=== PATIENT | male | born 1960 | race Caucasian/White ===

== ENCOUNTER 2017-04-03 08:00 | Inpatient (IN) | payer OTHER ==
--- NOTE | 2017-03-27 09:44 | GHP ---
[f rep st] PREOP HISTORY AND PHYSICAL ADMISSION DATE: He will be an a.m. admission for surgery on April 03, 2017. PROBLEM: Left hip arthritis. HISTORY OF PRESENT ILLNESS: The patient is a 56-year-old man admitted for a left total hip arthroplasty. He has severe degenerative arthritis in the left hip. He has had several cortisone injections in the past with only temporary benefit. His symptoms have been quite severe in the past month or so since he sustained a fall. He is now having daily pain. His activities are very limited. PAST MEDICAL HISTORY: He has coronary artery disease. He had 1 stent inserted a number of years ago. He has not had any subsequent problems. He is also treated for gout and receives medication to lower his cholesterol. No history of DVT, hepatitis, sleep apnea or previous MRSA staph infections. CURRENT MEDICATIONS: Allopurinol 300 mg per day. Atorvastatin 40 mg per day. Lipitor 20 mg per day. He has been taking Percocet in the last few weeks to control the hip pain. DRUG ALLERGIES: None. METAL ALLERGY: None. LATEX ALLERGY: None. SOCIAL HISTORY: The patient is . He works in [employer]. He does not smoke cigarettes and rarely drinks alcohol. FAMILY HISTORY: Positive for cancer and diabetes. PHYSICAL EXAMINATION: GENERAL: He is a thin, fit-appearing man. Height 5 feet 9 inches. Weight 175 pounds. BMI 25.8. EYES: Conjunctivae and sclerae are clear. Pupils are round and reactive. MOUTH: Good oral hygiene. No loose teeth. CHEST: Clear. HEART: Regular rhythm. No murmurs. EXTREMITIES : Pertinent findings limited to his left hip. He walks with a limp. Full hip extension and 90 degrees of flexion. As he flexes the hip, he develops a 20- degree external rotation contracture and has 20 additional degrees of external rotation. Abduction 30 degrees. IMAGING: His films show very severe degenerative arthritis of the left hip. He is [id number]. He has moderate degenerative arthritis in his right hip. IMPRESSION ON ADMISSION: 1. Left hip severe degenerative arthritis, which is very symptomatic and limiting. 2. Right hip moderate degenerative arthritis, which is minimally symptomatic. 3. Coronary artery disease, status post stent insertion. 4. Treatment for cholesterol. 5. Treatment for gout. PLAN: He will undergo a left total hip arthroplasty. The surgery has been described to him, including the risks, expectations, complications and recovery time. We have discussed the risks of dislocation, leg length inequality, infection, and sciatic nerve injury. He understands that he is relatively young for a total hip replacement and might need revision surgery in the future. He also understands he is probably going to need a right total hip arthroplasty in the future. I did his right total knee arthroplasty in 2009. /[id number]/MODL MTDD
[~2017-04-03 08:00] MED LIST: ROPIVACAINE 0.2% 80 MG, EPINEPHrine 0.2 MG, KETOROLAC TROMETHAMINE 30 MG in BAG 0 ML IU ONE; TRANEXAMIC ACID 1,600 MG in NS 100 ML IV ONE; ceFAZolin 1 GM/5 ML SYR ONE
[2017-04-03] MEDS ORDERED: ACETAMINOPHEN 325 MG TAB PO ONE (08:10)
[2017-04-03] MEDS ORDERED: ceFAZolin 2 GM/DEXTROSE 100 ML IV ONE (08:10)
[2017-04-03] MEDS ORDERED: DEXAMETHASONE 4 MG/ML VIAL IVP ONE (08:10)
[2017-04-03] MEDS ORDERED: FAMOTIDINE 20 MG TAB PO ONE (08:10)
[2017-04-03] MEDS ORDERED: LIDOCAINE 1% 2 ML INJ ID PRN (08:19)
[2017-04-03] MEDS ORDERED: LR 1,000 ML IV ONE (08:19)
[2017-04-03] MEDS ORDERED: POVIDONE-IODINE 20 ML in SODIUM CL IRRIG SOLUTION 500 ML IRR ONE (09:00)
[2017-04-03] MEDS ORDERED: MIDAZOLAM 2 MG/2 ML VIAL IVP ONE (09:04)
--- NOTE | 2017-04-03 09:04 | PDANEPAE ---
ANE History of Present Illness L BESSIE ANE Past Medical History Past Medical History: DJD L HIP - Cardiovascular History Hx Hypertension: No Hx Arrhythmias: No Hx Chest Pain: No Hx Coronary Artery / Peripheral Vascular Disease: Yes Hx CHF / Valvular Disease: No Hx Palpitations: No Cardiovascular History Comment: STENT 2005, stable since on statins, 0 anticoagulation. 5+ METS - Pulmonary History Hx COPD: No Hx Asthma/Reactive Airway Disease: No Hx Recent Upper Respiratory Infection: No Hx Oxygen in Use at Home: No Hx Sleep Apnea: No Sleep Apnea Screening Result - Last Documented: Negative - Neurologic History Hx Cerebrovascular Accident: No Hx Seizures: No Hx Dementia: No - Endocrine History Hx Diabetes: No Endocrine History Comment: GOUT - Renal History Hx Renal Disorders: No - Liver History Hx Hepatic Disorders: No - Neurological & Psychiatric Hx Hx Neurological and Psychiatric Disorders: No - Cancer History Hx Cancer: No - Congenital Disorder History Hx Congenital Disorders: No - GI History Hx Gastrointestinal Disorders: No - Other Health History Other Health History: GOUT. OSTEOARTHRITIS - Chronic Pain History Chronic Pain: Yes (LT HIP) - Surgical History Prior Surgeries: RT TOTAL KNEE 2009. FREYA KNEE SCOPES ANE Review of Systems - Exercise capacity METS (RN): 5 METS ANE Patient History - Allergies Allergies/Adverse Reactions: No Allergies [NKDA] Allergy (Verified 10/20/09 09:09) - Home Medications Home Medications: ASPIRIN DAILY 03/01/17 [Last Taken 03/27/17] Allopurinol DAILY AT 6PM 03/01/17 [Last Taken 03/27/17] Atorvastatin Calcium DAILY AT 6PM 03/01/17 [Last Taken 03/27/17] Percocet 10-325 mg Tablet TID 03/01/17 [Last Taken 03/27/17] - NPO status NPO Status: no food or drink >8 hours - Anes Hx Anes Hx: no prior problems - Smoking Hx Smoking Status: Never smoked Marijuana use: No - Alcohol Use Alcohol Use: Rarely ANE Labs/Vital Signs - Labs - CBC WBC: reviewed and ok - Vital Signs Height: 175.26 cm Weight: 77.111 kg ANE Physical Exam - Airway Mallampati Score: Class 1 Mouth exam: normal dental/mouth exam - Pulmonary Pulmonary: no respiratory distress - Cardiovascular Cardiovascular: regular rate and rhythym - ASA Status ASA Status: II ANE Anesthesia Plan Anesthesia Plan: spinal (spinal with Propofol sedation, no duramorph)
--- NOTE | 2017-04-03 09:10 | PDHPUP ---
History & Physical Update H&P update statement: This history and physical update is based on an assessment of the patient which was completed after admission or registration (within 24 hours), but prior to the surgery/procedure. H&P update: H&P reviewed & patient examined, no change in patient's condition since H&P completed
[2017-04-03] MEDS ORDERED: BUPIVACAINE 0.5% 30 ML SDV ONE (09:43)
[2017-04-03] MEDS ORDERED: fentaNYL 100 MCG/2 ML INJ ONE (09:44)
[2017-04-03] MEDS ORDERED: PROPOFOL/EMULSION 500 MG/50 ML BOTTLE IV ONE ×2 (09:44→10:27)
[2017-04-03] MEDS ORDERED: ONDANSETRON 4 MG/2 ML VIAL ONE (10:05)
[2017-04-03] MEDS ORDERED: DEXAMETHASONE 4 MG/ML VIAL ONE (10:05)
[2017-04-03] MEDS ORDERED: epHEDrine SULFATE 10 MG/ML SYR ONE (10:13)
--- NOTE | 2017-04-03 11:18 | POSTOPPROG ---
Post Op Note Date of Operation: 04/03/17 Surgeon: Vince Deleon Stretcher And Drier: Kade/ Franky Whitlock Anesthesiologist: Leif Arellano Anesthesia: IV Sedation, Spinal Post-op Diagnosis: left hip arthritis Procedure: left total hip arthroplasty Inf/Abcess present in the surg proc area at time of surgery?: No EBL: 100-500
[2017-04-03] MEDS ORDERED: DEXAMETHASONE 4 MG/ML VIAL IVP PRN (11:29)
[2017-04-03] MEDS ORDERED: LABETALOL HCL 50 MG/10 ML SYR IVP PRN (11:29)
[2017-04-03] MEDS ORDERED: METOCLOPRAMIDE 10 MG/2 ML VIAL IVP PRN ×2 (11:29→11:44)
[2017-04-03] MEDS ORDERED: ONDANSETRON 4 MG/2 ML VIAL IVP PRN ×2 (11:29→11:44)
[2017-04-03] MEDS ORDERED: LR 500 ML IV PRN (11:29)
[2017-04-03] MEDS ORDERED: HYDROCODONE/APAP 5/325 TAB PO PRN (11:29)
[2017-04-03] MEDS ORDERED: PROMETHAZINE HCL 25 MG/ML INJ IVP PRN ×2 (11:29→11:44)
[2017-04-03] MEDS ORDERED: MEPERIDINE 25 MG/ML SYR IVP PRN (11:29)
[2017-04-03] MEDS ORDERED: OXYCODONE/APAP 5/325 TAB PO PRN (11:29)
[2017-04-03] MEDS ORDERED: fentaNYL 100 MCG/2 ML INJ IVP PRN ×2 (11:29)
[2017-04-03] MEDS ORDERED: NALOXONE HCL 0.4 MG/ML INJ IVP PRN (11:29)
[2017-04-03] MEDS ORDERED: ACETAMINOPHEN 500 MG TAB PO PRN (11:29)
[2017-04-03] MEDS ORDERED: ALBUTEROL 3 ML DEYVIAL IH PRN (11:29)
--- NOTE | 2017-04-03 11:32 | POSTANESTH ---
Post Anesthetic Evaluation Cardiovascular Status: Normal, Stable Respiratory Status: Normal, Stable Level of Consciousness/Mental Status: Can Participate in Eval Pain Control: Adequate, Prn Tx Ordered Nausea/Vomiting Control: Adequate, Prn Tx Ordered Complications Possibly Related to Anesthesia: None Noted (no apparent anesthetic complications)
[2017-04-03] MEDS ORDERED: TEMAZEPAM 15 MG CAP PO PRN (11:44)
[2017-04-03] MEDS ORDERED: POLYETHYLENE GLYCOL 3350 17 GM PKT PO PRN (11:44)
[2017-04-03] MEDS ORDERED: traMADol 50 MG TAB PO PRN (11:44)
[2017-04-03] MEDS ORDERED: NS 500 ML IV PRN (11:44)
[2017-04-03] MEDS ORDERED: diphenhydrAMINE 25 MG CAP PO PRN (11:44)
[2017-04-03] MEDS ORDERED: DIPHENOXYLATE/ATROPINE LOMOTIL 1 TAB PO PRN (11:44)
[2017-04-03] MEDS ORDERED: BISACODYL 10 MG SUPP PR PRN (11:44)
[2017-04-03] MEDS ORDERED: PROMETHAZINE HCL 25 MG SUPPR PR PRN (11:44)
[2017-04-03] MEDS ORDERED: ONDANSETRON DISINTEGRATING 4 MG TAB PO PRN (11:44)
[2017-04-03] MEDS ORDERED: MAGNESIUM HYDROXIDE 30 ML UDCUP PO PRN (11:44)
[2017-04-03] MEDS ORDERED: CYCLOBENZAPRINE 10 MG TAB PO PRN (11:44)
[2017-04-03] MEDS ORDERED: PHARMACY PAIN CONSULT 1 EA MISC PRN (11:44)
[2017-04-03] MEDS ORDERED: LACTULOSE 20 GM/30 ML UDCUP PO PRN (11:44)
[2017-04-03] MEDS ORDERED: LR 1,000 ML IV SCH (12:00)
[2017-04-03] MEDS: ACETAMINOPHEN 325 MG TAB PO SCH ×3 (13:14→23:41)
[2017-04-03] MEDS: oxyCODONE IR 5 MG TAB PO PRN ×2 (16:45→20:18)
[2017-04-03] MEDS: ceFAZolin 2 GM/DEXTROSE 100 ML IV SCH (18:20)
[2017-04-03] MEDS: KETOROLAC 30 MG/1 ML SDV IVP PRN (20:18)
[2017-04-03] MEDS: ASPIRIN 325 MG TAB PO SCH (20:19)
[2017-04-03] MEDS: TRANEXAMIC ACID 650 MG TAB PO SCH (20:19)
[2017-04-03] MEDS: FAMOTIDINE 20 MG TAB PO SCH (20:20)
[2017-04-03] MEDS: SENNOSIDES/DOCUSATE SODIUM TAB PO SCH (20:29)
--- NOTE | 2017-04-03 21:44 | GOP ---
[f rep st] OPERATIVE REPORT DATE OF OPERATION: 04/03/2017 SURGEON: Vince Deleon MD ELECTRICIAN CONTROL EQUIPMENT: James Braun [facility] Joby Whitlock, PAC ANESTHESIA: Marcaine spinal and IV sedation. ANESTHESIOLOGIST: Leif Arellano MD PREOPERATIVE DIAGNOSIS: Left hip advanced degenerative arthritis. POSTOPERATIVE DIAGNOSIS: Left hip advanced degenerative arthritis. PROCEDURE PERFORMED: On 04/03/2017, a left total hip arthroplasty, Oxinium femoral head on Highly C rosslinked polyethylene cup liner. FINDINGS: DESCRIPTION OF PROCEDURE: The patient was given 2 g of IV Ancef preoperatively within 60 minutes of surgery. He also received IV tranexamic acid at a dose of 20 mg/kg. He was placed on the operatin g room table and given spinal anesthesia with Marcaine by Dr. Arellano. He was then placed supine and given IV sedation. A High catheter was not used. He wore a KEISHA stocking and SCD on the nonoperati ve leg. He was rolled to the right lateral decubitus position. The position was secured with the p egboard table attachment. An axillary roll was used and all pressure points were carefully padded. I was careful to lock his pelvis in a vertical position. His perineum was isolated with plastic ad hesive drapes. The left hip and left lower extremity were prepped with ChloraPrep. They were drape d free using sterile sheets, stockinette, and Ioban plastic drape. The [employer] time-out was performed to verify the correct surgical side and site an d the correct patient identity. The [place] time-out was also performed. I made a 4-5 inch straight oblique posterolateral hip skin incision. Subcutaneous tissues were karina ply divided and hemostasis was obtained using electrocautery. He was thin and had a thin layer of s ubcutaneous fat. The fascia susie was identified and split along the axis of its fibers. I then cur cristobal posteriorly and proximally and split the fascia of the gluteus jesus manuel and bluntly split the mus johnny fibers in line with their orientation. The Charnley self-retaining retractor was inserted. His sciatic nerve was located, partially exposed, and protected throughout the procedure. The external rotators and the posterior hip capsule were divided as separate layers at the base of the femoral n nahun, tagged, and reflected posteriorly. A smooth 8-inch Steinmann pin was inserted vertically in th e ilium superior to the acetabulum. An 8th-inch drill bit was inserted vertically into the greater trochanter and parallel to the first pin. The distance between the 2 was measured for leg length re ference. His femoral head was dislocated posteriorly. Severe degenerative changes were present. T he femoral neck was osteotomized at the appropriate level and inclination. I was careful to preserve all the posterior capsule and most of the anterior capsule. The remnant o f his damaged labrum was excised. I prepared the femur first. This allowed me to [employer] the amount of natural femoral neck anteversion . This, in turn, allowed me to later determine the correct amount of cup anteversion. He had appro ximately 5-10 degrees of natural femoral neck anteversion. The canal was opened laterally with a anneliese x chisel. I reamed and broached sequentially up to a size 13. I used a size 13 broach as a trial s tem. I was careful to lateralize adequately. Appropriate retractors were inserted to expose the acetabulum. The acetabulum was reamed sequential ly up to 53 mm. I selected a 54 mm Metzger and Nephew R3 solid-backed hemispherical shell. This was tapped securely into place in the proper degree of inclination and anteversion. I used the transver se acetabular ligament and other acetabular bony landmarks to help me properly orient the cup. Cup fixation was very tight and I did not think supplemental screws were necessary. I inserted a screw- in metal dome hole plug. I performed a series of trial reductions to determine length and stability. I concluded that the si ze 13 stem with a +4 mm neck length, a 36 mm head, and a 20-degree lip trial liner gave me the prope r combination of appropriate length and good anterior and posterior stability. The 20-degree lipped Metzger and Nephew R3 Highly Crosslink polyethylene liner was inserted and tapped securely into place. I selected a Metzger and Nephew Synergy stem in size 13 with standard offset. This was inserted press-fit and was very tight. I did 1 final trial reduction to confirm that the + 4 mm neck length with a 36 mm head was the proper combination. I selected a Metzger and Nephew Oxiniu m head with an outside diameter of 36 mm and a neck length of +4 mm. The head was tapped securely o nto the clean trunnion. The acetabulum was irrigated, cleaned, and then the hip was reduced 1 final time. Forty mL of the joint anesthetic cocktail were injected into the capsule, the deep musculature, and subcutaneous tissues along the skin edges. The joint was thoroughly irrigated 1 final time with a d ilute Betadine solution. His sciatic nerve was reinspected and looked unharmed. The external rotat ors and the posterior hip capsule were repaired in separate layers with #2 FiberWire sutures through drill holes in the greater trochanter. This provided a strong posterior capsular and external rota tor repair. The fascia susie was closed first with several interrupted [id number] #2 FiberWire sutures followed by a running #2 barbed Ethicon Stratafix PDO suture. Subcutaneous tissues were roger sed with a running 0 barbed Ethicon Stratafix Monoderm suture. The skin was closed with a running 3 -0 barbed Ethicon Stratafix Monoderm subcuticular suture. The skin edges were reapproximated and se aled with Dermabond glue. The wound was covered with a strip of Telfa and everything was held in pl deny with a piece of clear plastic Tegaderm. A long-leg KEISHA stocking and SCD were applied to his left lower extremity. He wore a stocking and SC D on the opposite leg during the procedure. An abduction pillow was placed between his knees. He w as awakened from anesthesia and rolled to the supine position on his [facility]. He was taken to PACU in satisfactory condition. There were no recognized intraoperative complications. The lam mated blood loss was about 400 mL. The sponge and needle count were correct on 2 occasions. I used a Metzger and Nephew R3 hemispherical solid-backed acetabular shell with an outside diameter of 54 mm. The liner was a Metzger and Nephew R3 20-degree lipped Highly Crosslinked liner with an insid e diameter of 36 mm. The femoral component was a standard offset Metzger and Nephew Synergy stem in s ize 13 with press-fit. The femoral head was Metzger and Nephew Oxinium head with a +4 mm neck length and a 36 mm outside diameter. James Braun and Franky Whitlock acted as surgical assistants. Their assistance was a ludivina vázquez. /[id number]/MODL
[2017-04-04] MEDS: oxyCODONE IR 5 MG TAB PO PRN (00:20)
[2017-04-04 01:43] VITALS: RESP 16
[2017-04-04] MEDS: ceFAZolin 2 GM/DEXTROSE 100 ML IV SCH (01:53)
[2017-04-04] MEDS: KETOROLAC 30 MG/1 ML SDV IVP PRN ×2 (01:53→08:46)
[2017-04-04] MEDS ORDERED: SUMAtriptan 25 MG TAB PO PRN (02:25)
[2017-04-04] MEDS: TRANEXAMIC ACID 650 MG TAB PO SCH ×3 (03:58→13:50)
[2017-04-04] MEDS: ACETAMINOPHEN 325 MG TAB PO SCH ×2 (05:06→12:14)
[2017-04-04 05:26] LABS: HEMATOCRIT 36.6 % (40.0-51.0); HEMOGLOBIN 12.3 g/dL (13.7-17.5)
--- NOTE | 2017-04-04 07:58 | SOAPPROG ---
SOAP Progress Note Assessment/Plan: Assessment: Afebrile. Awake and alert. He is complaining of the severe migraine headaches. Whenever he gets up he develops nausea and vomiting. He has a history of previous migraine headaches. He has already been given Imitrex and Toradol without relief. His dressing is dry. Sciatic nerve intact. Films look good. H&H is good. Plan: Treat his migraine headaches with Imitrex, Tylenol No. 3 and IV fluids. Continue physical therapy. Discharged later today if the migraine headaches symptoms can be controlled. 04/04/17 07:56 Objective: Vital Signs Temp Pulse Resp BP Pulse Ox 37.1 C 57 L 16 120/88 H 91 L 04/04/17 07:31 04/04/17 07:31 04/04/17 07:31 04/04/17 07:31 04/04/17 07:31 Laboratory Results 04/04/17 04:59 04/03/17 04/04/17 04/05/17 05:59 05:59 05:59 Intake Total 5080 Output Total 4050 Balance 1030 ICD10 Worksheet Patient Problems: Problems Problem Status Onset Osteoarthritis of left hip Acute
[2017-04-04] MEDS ORDERED: SUMAtriptan 25 MG TAB PO ONE (08:00)
[2017-04-04] MEDS ORDERED: ACETAMINOPHEN/CODEINE 300/30MG TAB PO PRN (08:00)
[2017-04-04] MEDS ORDERED: FERROUS SULFATE 140 MG TAB.ER PO SCH (09:00)
[2017-04-04 11:33] VITALS: BP 128/75; PULSE 62; TEMP 98.5; O2SAT 95
[2017-04-04] MEDS: FAMOTIDINE 20 MG TAB PO SCH (12:15)
[2017-04-04] MEDS: ASPIRIN 325 MG TAB PO SCH (12:15)
[2017-04-04] MEDS: SENNOSIDES/DOCUSATE SODIUM TAB PO SCH (12:15)
--- NOTE | 2017-04-04 16:22 | GDS ---
[f rep st] DISCHARGE SUMMARY ADMITTING DIAGNOSES: Left hip severe degenerative arthritis. DISCHARGE DIAGNOSIS: Left hip severe degenerative arthritis. OPERATION PERFORMED: On 04/03/2017, left total hip arthroplasty. POSTOPERATIVE COMPLICATIONS: None. CONDITION ON DISCHARGE: Improved. DESCRIPTION OF HOSPITAL COURSE: The patient was admitted to the hospital on the morning of surgery. His admission CBC was normal. The same day, under a combination of Marcaine, spinal anesthesia an d IV sedation, he underwent a left total hip arthroplasty. Postoperatively, he was treated with mul timodal DVT prophylaxis, including aspirin. On the first postoperative day, his hemoglobin and hematocrit were 12.3 and 36.6. He developed a po stoperative migraine headache, which caused quite a bit of nausea and vomiting. The migraine headac he was treated with Imitrex, Tylenol with codeine, and increased IV fluids. He was seen by Physical Therapy and made satisfactory progress with ambulation and stairs. DISPOSITION: The patient is discharged to his home. DISCHARGE INSTRUCTIONS: He will go to outpatient physical therapy. Use an abduction pillow in bed for 3 weeks. Use KEISHA stockings for 1 week. Continue aspirin 325 mg p.o. daily for 21 days. I will see him back in the office on 04/22/2017. If there any problems, he is to call me at the office. /[id number]/MODL
== END 2017-04-04 12:30 | disposition home or self-care (01) | DRG 470 ==
LOC: EEVIPCON 08:00 → F3N 08:00 → EEVIPCON 10:00 → F3N 12:31
PROVIDERS: ADMIT Orthopaedic Surgery; ATTEND Orthopaedic Surgery
PROC: 0SRB04Z Replacement of Left Hip Joint with Ceramic on Polyethylene Synthetic Substitute, Open Approach (ICD-10-PCS; principal; 2017-04-03 09:45)
DX: M16.0 Bilateral primary osteoarthritis of hip (principal); G43.909 Migraine, unspecified, not intractable, without status migrainosus; I25.10 Atherosclerotic heart disease of native coronary artery without angina pectoris; Z95.5 Presence of coronary angioplasty implant and graft; M10.9 Gout, unspecified; E78.00 Pure hypercholesterolemia, unspecified
CPT/HCPCS: 97116-GP; 97161-GP; 97165-GO; J0171; J0690; J1100; J1885; J2250; J2405; J2550; J2704; J2765; J2795; J3010

== ENCOUNTER 2017-06-06 14:08 | Inpatient (IN) | payer OTHER ==
--- NOTE | 2017-06-06 14:11 | EDPHY ---
HPI/HX/ROS/PE/MDM Narrative: CHIEF COMPLAINT: Post-resuscitation HPI: This patient is a 56 year old male arriving via EMS following successful resuscitation at the [employer] [place] shortly prior to arrival. Per EMS report , he was swimming laps, and the pot feeder noted he was not making forward progress and seemed to be flailing. The patient looked up but seemed to be disoriented, and lost consciousness as he swam towards the side. The pot feeder pulled him out immediately, and he did not go underwater. The pot feeder noted agonal breathing, lost pulses, and placed on AED, which recommended shock. He performed 2 minutes of CPR. A second shock was advised. In the middle of second round of CPR, the patient opened his eyes and started talking. He has no memory of event. EKG in transit showed sinus rhythm. The patient currently feels alright. He felt lightheaded in the pool, and then remembers waking with a large group of people around him. He endorses chest pain on deep inspiration, localized to the left of his sternum. He states he regularly swims for exercise and usually does not eat prior to his swims, but did today. He denies recent cold or flu symptoms. REVIEW OF SYSTEMS: Aside from elements discussed in the HPI, a comprehensive 10-point review of systems was reviewed and is negative. PMH: History of mild [place], stent placement. Heart scan in 2011 negative for calcium buildup. Knee and hip replacement. 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 . Lives in [place]. PHYSICAL EXAM: General:Patient is alert, in no acute distress. ENT:Eyes are normal to inspection. ENT inspection normal. Neck: Normal inspection. Full range of motion. Respiratory:No respiratory distress. Breath sounds normal bilaterally. Cardiovascular: Regular rate and rhythm. Strong peripheral pulses. Normal cap refill. Abdomen:The abdomen is nontender to palpation. There are no peritoneal signs. There are normal bowel sounds. Back: Normal to inspection. No tenderness to palpation. Skin: Normal color. No rash. Warm and dry. Extremities: Normal appearance. Full range of motion. Neuro: Oriented x3. Normal motor function. Normal sensory function. ED Course: 14:09 Met EMS on arrival. Plan to call cardiology. 14:[address] Castellanos, gear shaper. 14:[address] Martinez, gear shaper. He will assess the patient. 14:[address] Alicia. The patient now states he experienced chest tightness this morning. Plan to admit him to the labor delivery rn for continued evaluation. I spent a total of 30 minutes of critical care time in obtaining history, performing a physical exam, bedside monitoring of interventions, collecting and interpreting tests and discussion with consultants but not including time spent performing procedures. - Data Points Imaging Results: Imaging Impressions Chest X-Ray 06/06/17 14:22 Impression: Clear lungs. Negative portable chest. Laboratory Results: Laboratory Results 06/06/17 14:12 06/06/17 14:12 06/06/17 06/06/17 06/06/17 14:12 14:12 14:07 WBC 8.05 10^3/uL 10^3/uL (3.80-9.50) RBC 4.38 10^6/uL L 10^6/uL (4.40-6.38) Hgb 13.7 g/dL g/dL (13.7-17.5) POC Hgb 15.0 gm/dL gm/dL (13.7-17.5) Hct 41.0 % % (40.0-51.0) POC Hct 44 % % (40-51) MCV 93.6 fL fL (81.5-99.8) MCH 31.3 pg pg (27.9-34.1) MCHC 33.4 g/dL g/dL (32.4-36.7) RDW 14.2 % % (11.5-15.2) Plt Count 195 10^3/uL 10^3/uL (150-400) MPV 11.6 fL fL (8.7-11.7) Neut % (Auto) 43.3 % % (39.3-74.2) Lymph % (Auto) 43.2 % % (15.0-45.0) Avery % (Auto) 6.7 % % (4.5-13.0) Eos % (Auto) 6.1 % % (0.6-7.6) Baso % (Auto) 0.5 % % (0.3-1.7) Nucleat RBC Rel Count 0.0 % % (0.0-0.2) Absolute Neuts (auto) 3.48 10^3/uL 10^3/uL (1.70-6.50) Absolute Lymphs (auto) 3.48 10^3/uL H 10^3/uL (1.00-3.00) Absolute Monos (auto) 0.54 10^3/uL 10^3/uL (0.30-0.80) Absolute Eos (auto) 0.49 10^3/uL H 10^3/uL (0.03-0.40) Absolute Basos (auto) 0.04 10^3/uL 10^3/uL (0.02-0.10) Absolute Nucleated RBC 0.00 10^3/uL 10^3/uL (0-0.01) Immature Gran % 0.2 % % (0.0-1.1) Immature Gran # 0.02 10^3/uL 10^3/uL (0.00-0.10) POC Sodium 143 mEq/L mEq/L (134-144) Sodium 142 mEq/L mEq/L (134-144) POC Potassium 3.2 mEq/L L mEq/L (3.3-5.0) Potassium 3.6 mEq/L mEq/L (3.5-5.2) POC Chloride 103 mEq/L mEq/L (97-110) Chloride 103 mEq/L mEq/L (97-110) Carbon Dioxide 21 mEq/l L mEq/l (22-31) Anion Gap 18 mEq/L H mEq/L (8-16) POC BUN 15 mg/dL mg/dL (7-23) BUN 15 mg/dL mg/dL (7-23) Creatinine 1.1 mg/dL mg/dL (0.7-1.3) POC Creatinine 1.1 mg/dL mg/dL (0.7-1.3) Estimated GFR > 60 Glucose 148 mg/dL H mg/dL (70-100) POC Glucose 158 mg/dL H mg/dL (70-100) Calcium 9.2 mg/dL mg/dL (8.5-10.4) Troponin I 0.035 ng/mL H ng/mL (0.000-0.034) Point of Care Test Results: 06/06/17 14:07 POC Sodium 143 POC Potassium 3.2 L POC Chloride 103 POC BUN 15 POC Creatinine 1.1 POC Glucose 158 H General Initial Vital Signs: Initial Vital Signs Temperature (C) 36.9 C 06/06/17 14:17 Heart Rate 67 06/06/17 14:17 Respiratory Rate 15 06/06/17 14:17 Blood Pressure 136/82 H 06/06/17 14:17 O2 Sat (%) 94 06/06/17 14:17 O2 Delivery Mode Nasal Cannula O2 (L/minute) 2 Allergies/Adverse Reactions: No Allergies [NKDA] Allergy (Verified 06/06/17 14:14) Home Medications: Medication Instructions Recorded Allopurinol [Allopurinol 300 MG 300 mg PO DAILY 03/01/17 (RX)] Atorvastatin Calcium [Lipitor 20 20 mg PO DAILY 03/01/17 mg (*)] [place]-3 Fatty Acids [Fish Oil 1000 1,000 mg PO DAILY 04/03/17 mg (*)] Acetaminophen [Tylenol 325mg (*)] 650 mg PO Q6HRS #0 tab 04/04/17 Aspirin [Aspirin 325 mg (*)] 325 mg PO DAILY #21 tab 04/04/17 Ferrous Sulfate [Slow Fe 140 MG 140 mg PO DAILY #30 tab.er 04/04/17 (*)] Ondansetron Odt [Zofran Odt 4 mg 4 mg PO Q4HRS PRN #0 tab 04/04/17 (*)] Hydrocodone Bit/Acetaminophen 06/06/17 Departure - Departure Disposition: [facility] Acute Clinical Impression: Cardiac arrest Condition: Fair Referrals: Patient,NotPresent [Primary Care Provider] - As per Instructions Report Scribed for: Bryan Marie Report Scribed by: Darleen Ortiz Date of Report: 06/06/17 Time of Report: 14:08 Physician Review and Approval Statement: Portions of this note were transcribed by an ED scribe. I personally performed the history, physical exam, and medical decision making; and confirm the accuracy of the information in the transcribed note.
--- NOTE | 2017-06-06 14:24 | CPEKG ---
Heart Rate: 66 RR Interval: 909 P-R Interval: 204 QRSD Interval: 96 QT Interval: 440 QTC Interval: 461 P Saxe: 57 QRS Saxe: -8 T Wave Saxe: 45 EKG Severity - NORMAL ECG - EKG Impression: SINUS RHYTHM Electronically Signed By: Ricky Blackmon 07-Jun-2017 11:47:36
[2017-06-06 14:26] LABS: % IMMATURE GRANULYOCYTES 0.2 % (0.0-1.1); ABSOLUTE IMMATURE GRANULOCYTES 0.02 10^3/uL (0.00-0.10); ADD DIFF? NO; ADD MORPH? NO; ADD SCAN? NO; ATYPICAL LYMPHOCYTE FLAG 0 (0-99); FRAGMENT RBC FLAG 0 (0-99); HEMOGLOBIN 13.7 g/dL (13.7-17.5); LEFT SHIFT FLG 0 (0-99); LIPEMIA HEMOLYSIS FLAG 80 (0-99); MEAN CELL HEMOGLOBIN 31.3 pg (27.9-34.1); MEAN CELL HEMOGLOBIN CONCENTR. 33.4 g/dL (32.4-36.7); MEAN CELL VOLUME 93.6 fL (81.5-99.8); MEAN PLATELET VOLUME 11.6 fL (8.7-11.7); PLATELET CLUMPS FLAG 0 (0-99); PLATELET COUNT 195 10^3/uL (150-400); RED BLOOD CELL COUNT 4.38 10^6/uL (4.40-6.38); RED CELL DISTRIBUTION WIDTH 14.2 % (11.5-15.2)
[2017-06-06 14:41] LABS: ANION GAP 18 mEq/L (8-16); CALCIUM 9.2 mg/dL (8.5-10.4); CARBON DIOXIDE 21 mEq/l (22-31); CHLORIDE 103 mEq/L (97-110); CREATININE 1.1 mg/dL (0.7-1.3); GLOMERULAR FILTRATION RATE > 60; GLUCOSE 148 mg/dL (70-100); POTASSIUM 3.6 mEq/L (3.5-5.2); SODIUM 142 mEq/L (134-144)
[2017-06-06 14:51] LABS: TROPONIN I 0.035 ng/mL (0.000-0.034)
[2017-06-06] MEDS ORDERED: LIDOCAINE 1% 300 MG/30 ML SDV ONE (14:59)
[2017-06-06] MEDS ORDERED: fentaNYL 100 MCG/2 ML INJ ONE ×2 (14:59→15:33)
[2017-06-06] MEDS ORDERED: MIDAZOLAM 2 MG/2 ML VIAL ONE ×3 (14:59→15:53)
[2017-06-06] MEDS ORDERED: IOPAMIDOL (ISOVUE-370) 150 ML BTL IV ONE ×3 (15:00→16:11)
[2017-06-06] MEDS ORDERED: ASPIRIN 81 MG CHEWABLE TAB ONE (15:12)
--- NOTE | 2017-06-06 15:28 | PDPROPOC ---
Sedation Plan of Care Sedation Plan of Care: vital signs stable, mental status noted, patient educated of risks, benefits, alternatives, patient can tolerate sedation ASA Classification: ASA 2 Planned drugs: fentanyl, midazolam Mallampati Score: Class 2 Mallampati Reference Image: Patient passed 3-3-2 rule?: Yes
[2017-06-06] MEDS ORDERED: BIVALIRUDIN 250 MG/5 ML VIAL IV ONE (15:46)
[2017-06-06] MEDS ORDERED: NITROGLYCERIN 1,500 MCG/15 ML VIAL MISC ONE (16:10)
[2017-06-06] MEDS ORDERED: TICAGRELOR 90 MG TAB ONE (16:25)
[2017-06-06] MEDS ORDERED: ONDANSETRON 4 MG/2 ML VIAL IVP PRN (16:54)
[2017-06-06] MEDS ORDERED: ATROPINE SULFATE 1 MG/10 ML SYR IVP PRN (16:54)
[2017-06-06] MEDS ORDERED: LORazepam 2 MG/ML INJ IVP PRN (16:54)
[2017-06-06] MEDS ORDERED: NITROGLYCERIN 0.4 MG BTL SL PRN (16:54)
[2017-06-06] MEDS ORDERED: TEMAZEPAM 15 MG CAP PO PRN (16:54)
--- NOTE | 2017-06-06 17:09 | CPEKG ---
Heart Rate: 61 RR Interval: 984 P-R Interval: 204 QRSD Interval: 94 QT Interval: 452 QTC Interval: 456 P Ark[place]: 66 QRS [place]: -15 T Wave [place]: 32 EKG Severity - OTHERWISE NORMAL ECG - EKG Impression: SINUS RHYTHM EKG Impression: BORDERLINE LEFT AXIS DEVIATION Electronically Signed By: Ricky Blackmon 07-Jun-2017 06:05:32
--- NOTE | 2017-06-06 17:23 | GCON ---
[f rep st] CONSULTATION REASON FOR CONSULTATION: We have been asked by Dr. Marie to evaluate the patient with a cardiac a rrest. HISTORY OF PRESENT ILLNESS: The patient is a 56-year-old gentleman with known coronary artery diseas e, who presented to the Emergency Department on 06/06/2017 with a witnessed cardiac arrest. The demetrice ent was in his usual state of health until the a.m. of admission, when he began to experience some ch est discomfort. The patient described the chest discomfort as a tightness going across the top of hi s chest. It did not radiate into his arms and was not associated with nausea, vomiting, or diaphores is. The patient thought he may have had a cold and continued on with his daily activities. The demetrice ent continued to note the chest discomfort intermittently throughout the day. In the afternoon he we nt for his routine swim and completed 90% of his workout, when he was noted to be not making forward progress and was flailing, according to a salesforce business analyst. The patient began to swim to the side of the po ol where he lost consciousness. The lifestyle block farmer immediately pulled him out of the pool and initiated CPR. An AED was placed, and the patient was ultimately shocked on 2 separate occasions with return o f a perfusing rhythm. At this time, the patient is having some discomfort across the top of his ches t, but is otherwise feeling well. The patient has a previous history of coronary artery disease. In 2005 he had an acute coronary syndrome, and was treated with percutaneous coronary intervention of h is left anterior descending coronary artery. Symptoms at that time were predominantly nauseousness a nd diaphoresis. He did not report symptoms of chest pain. PAST MEDICAL HISTORY: 1. Coronary artery disease. 2. Hyperlipidemia. MEDICATIONS: Please see medicine reconciliation form. 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 He does not smoke. FAMILY HISTORY: Negative for cardiac arrest or early onset of coronary artery disease. REVIEW OF SYSTEMS: A 10-point review of systems is negative, except as noted in HPI. PHYSICAL EXAMINATION: GENERAL: The patient is sitting in bed. He appears to be in no acute distres s. VITAL SIGNS: Temperature is afebrile, pulse is 67, blood pressure 132/76, respiratory rate 18, S aO2 97% on 2 L nasal cannula. HEENT: Normocephalic atraumatic. Extraocular muscles intact. NECK: No JVD. No bruits. LUNGS: Clear to auscultation bilaterally. CARDIOVASCULAR: Regular rate and r hythm S1, S2. No murmurs, rubs, or gallops appreciated. ABDOMEN: Soft, nontender. Normoactive bow el sounds. EXTREMITIES: No clubbing, cyanosis, or edema. SKIN: Evidence of previous scars, but no rashes noted. NEURO: The patient is awake, alert, and oriented x3. LABORATORY: White blood cell count is 8.05, hemoglobin 13.7, hematocrit 41.0, platelet count 195, so dium 142, potassium 3.6, chloride 103, CO2 21, BUN 15, creatinine 1.1, troponin 0.035. EKG demonstrates sinus rhythm, no acute ST or T-wave changes. ASSESSMENT AND PLAN: The patient is a 56-year-old gentleman with known coronary artery disease, who presents with a cardiac arrest in the setting of probable crescendo angina. Reviewed risks and benef its of cardiac catheterization for risk stratification. We will arrange to have this performed emerg jaredly. /[id number]/MODL
--- NOTE | 2017-06-06 17:48 | CPIP ---
[f rep st] INVASIVE CARDIAC PROCEDURE DATE OF PROCEDURE: 06/06/2017 PROCEDURES: 1. Coronary angiography. 2. Left ventriculography. 3. Stenting of obtuse marginal 2 coronary artery with Synergy drug-eluting stents. INDICATION: Cardiac arrest. ACCESS: Patient was prepped and draped in sterile fashion. 1% lidocaine was used to anesthetize the right inguinal region. A 6-Chadian introducer sheath was placed selectively into the right common fe moral artery via modified Seldinger technique. CORONARY ANGIOGRAPHY: A 6-Chadian JL4 was advanced to the left main coronary artery and images obtain ed. The left main coronary artery bifurcated into an LAD and circumflex coronary arteries. The left main coronary artery appeared normal. The left anterior descending coronary artery had mild luminal irregularities throughout. There was no stenosis greater than 10%. In the umi-pu-ikltfs vessel, a previously placed stent could be seen. The previously placed stent was patent with mild in-stent res tenosis. The left anterior descending coronary artery gave rise to 1 prominent diagonal artery. The first diagonal artery was normal. Circumflex coronary artery was a large vessel but was nondominant . Circumflex coronary artery gave rise to 2 prominent OM branches. The circumflex coronary artery a ppeared normal. The OM1 coronary artery appeared normal. The om 2 coronary artery was 100% occluded in the mid segment with MAKSIM-0 flow and evidence of contrast staining. A 6-Chadian JR4 was advanced to the right coronary artery and images obtained. The right coronary artery was dominant. The right coronary artery appeared normal. LEFT VENTRICULOGRAPHY: A 6-Chadian pigtail catheter was advanced in the left ventricle and images obt ained. Left ventricle was normal size and had normal systolic function. Estimated ejection fraction was 65%. There were no segmental wall motion abnormalities. PERCUTANEOUS CORONARY INTERVENTION OF THE OM 2 CORONARY ARTERY: A 6-Chadian EBU 3.5 catheter was adva nced to the left main coronary artery and images obtained. Angiography confirmed the presence of 100 % total occlusion in the OM2 coronary artery. A Luge wire was placed in the distal vessel and positi on verified by angiography. The vessel was pre-dilated with 1.5 x 12 Emerge balloon. Followup angio graphy demonstrated significant residual stenosis with pentecostalism of MAKSIM-3 flow. The vessel was th en dilated with a 2.0 x 20 Emerge balloon. Followup angiography demonstrated significant residual st enosis and MAKSIM-3 flow. A 2.25 x 12 Synergy stent was placed in the distal vessel and deployed. Fol lowup angiography demonstrated MAKSIM-3 flow with significant residual disease proximally. A 2.25 x 20 Synergy drug-eluting stent was then placed in the mid vessel and deployed. Followup angiography dem onstrated MAKSIM-3 flow with significant residual stenosis proximally. A 2.25 x 24 Synergy drug-elutin g stent was then placed in the proximal vessel and deployed. Followup angiography demonstrated MAKSIM- 3 flow. No residual stenosis. COMPLICATIONS: None. CONCLUSIONS: 1. Patent left anterior descending stent with mild in-stent restenosis. 2. Occluded obtuse marginal 2 with evidence of contrast staining indicating acute closure. 3. Status post successful percutaneous coronary intervention of the obtuse marginal 2 using a Synerg y drug-eluting stent. /[id number]/MODL
[2017-06-06] MEDS: CARVEDILOL 3.125 MG TAB PO SCH (18:05)
[2017-06-06] MEDS ORDERED: HYDROmorphONE/DILAUDID 1 MG/ML INJ IVP PRN (22:25)
[2017-06-06] MEDS: HYDROCODONE/APAP 10/325 TAB PO PRN (22:54)
[2017-06-07] MEDS: HYDROCODONE/APAP 10/325 TAB PO PRN ×4 (02:54→21:33)
[2017-06-07] MEDS: TICAGRELOR 90 MG TAB PO SCH ×2 (05:01→20:40)
[2017-06-07 05:33] LABS: % IMMATURE GRANULYOCYTES 0.5 % (0.0-1.1); ABSOLUTE IMMATURE GRANULOCYTES 0.03 10^3/uL (0.00-0.10); ADD DIFF? NO; ADD MORPH? NO; ADD SCAN? NO; ATYPICAL LYMPHOCYTE FLAG 10 (0-99); FRAGMENT RBC FLAG 0 (0-99); HEMATOCRIT 35.4 % (40.0-51.0); HEMOGLOBIN 11.7 g/dL (13.7-17.5); LEFT SHIFT FLG 0 (0-99); LIPEMIA HEMOLYSIS FLAG 80 (0-99); MEAN CELL HEMOGLOBIN 30.8 pg (27.9-34.1); MEAN CELL HEMOGLOBIN CONCENTR. 33.1 g/dL (32.4-36.7); MEAN CELL VOLUME 93.2 fL (81.5-99.8); MEAN PLATELET VOLUME 11.5 fL (8.7-11.7); PLATELET CLUMPS FLAG 0 (0-99); PLATELET COUNT 144 10^3/uL (150-400); RED CELL DISTRIBUTION WIDTH 14.2 % (11.5-15.2)
[2017-06-07 06:00] LABS: ANION GAP 9 mEq/L (8-16); CALCIUM 7.8 mg/dL (8.5-10.4); CARBON DIOXIDE 24 mEq/l (22-31); CHLORIDE 109 mEq/L (97-110); CREATININE 0.7 mg/dL (0.7-1.3); GLOMERULAR FILTRATION RATE > 60; GLUCOSE 88 mg/dL (70-100); POTASSIUM 3.7 mEq/L (3.5-5.2); SODIUM 142 mEq/L (134-144)
[2017-06-07 06:25] LABS: CK-MB INTERPRETATION POSITIVE (NEGATIVE)
--- NOTE | 2017-06-07 09:02 | CPEKG ---
Heart Rate: 54 RR Interval: 1111 P-R Interval: 204 QRSD Interval: 92 QT Interval: 480 QTC Interval: 455 P [place]: 51 QRS [place]: -22 T Wave [place]: 34 EKG Severity - OTHERWISE NORMAL ECG - EKG Impression: SINUS RHYTHM EKG Impression: BORDERLINE LEFT AXIS DEVIATION Electronically Signed By: Ricky Blackmon 07-Jun-2017 11:46:38
[2017-06-07] MEDS: ATORVASTATIN CALCIUM 40 MG TAB PO SCH (09:15)
[2017-06-07] MEDS: CARVEDILOL 3.125 MG TAB PO SCH ×2 (09:15→18:03)
[2017-06-07] MEDS: ASPIRIN EC 81 MG TAB PO SCH (09:15)
[2017-06-07] MEDS ORDERED: SENNOSIDES/DOCUSATE SODIUM TAB PO PRN (09:49)
[2017-06-07] MEDS ORDERED: PNEUMOCOCCAL 0.5ML VACCINE VIAL IM ONE (10:02)
[2017-06-07 13:40] LABS: ALANINE AMINOTRANSFERASE 162 IU/L (21-72); ALKALINE PHOSPHATASE 68 IU/L (38-126); ASPARTATE AMINOTRANSFERASE 181 IU/L (17-59); BILIRUBIN,TOTAL 0.7 mg/dL (0.1-1.4); BILIRUBIN-CONJUGATED 0.3 mg/dL (0.0-0.5); BILIRUBIN-UNCONJUGATED 0.4 mg/dL (0.0-1.1); CHOLESTEROL 111 mg/dL (140-220); CHOLESTEROL/HDL RATIO 2.58 RATIO (1.00-4.97); HIGH DENSITY LIPOPROTEIN 43 mg/dL (40-65); LDL/HDL RATIO 1.26 RATIO (1.00-3.64); LOW DENSITY LIPOPROTEIN 54 mg/dL (80-100); NON-HIGH DENSITY LIPOPROTEIN 68 mg/dL (90-129); POTASSIUM 4.3 mEq/L (3.5-5.2); TOTAL PROTEIN 6.4 g/dL (6.3-8.2); TRIGLYCERIDE 74 mg/dL (40-150); VERY LOW DENSITY LIPOPROTEINS 14 mg/dL (8-25)
[2017-06-07 15:46] LABS: CK-MB INTERPRETATION POSITIVE (NEGATIVE)
--- NOTE | 2017-06-07 18:37 | SOAPPROG ---
[facility] Progress Note Assessment/Plan: 1. Cardiac arrest - Pt presented with a cardiac arrest on 06/06/17. Initial rhythm was polymorphic VT. He was treated with CPR and DCCV with return of a perfusing rhythm. Suspect secondary to sustained physical activity in the setting of an ACS. Will obtain a maximal stress test on coreg as an out patient when his acute issues resolve. 2. ACS - Pt presented with a cardiac arrest. He reports symptoms of chest pain concerning for angina earlier in the day and prior to his arrhythmias. Cardiac catheterization demonstrated acute closure of OM2. Pt was treated with PCI. Peak CPK = 687. EF wnl. Pt denies symptoms of angina and CHF. Tele with shorts runs of VT. --> Continue asa, brilinta, coreg, and lipitor. 3. Hyperlipidemia - LDL = 54 on lipitor. --> Continue current therapy. 4. HTN - BP well controlled on coreg. Subjective: No chest pain No orthopnea or PND ambulating with out difficulty tele - SR with shorts runs of VT Objective: Vital Signs Temp Pulse Resp BP Pulse Ox 36.7 C 48 L 8 L 126/79 H 98 06/07/17 12:00 06/07/17 15:53 06/07/17 15:53 06/07/17 15:53 06/07/17 15:53 Laboratory Results 06/07/17 05:10 06/07/17 12:48 06/06/17 06/07/17 06/08/17 05:59 05:59 05:59 Intake Total 1500 550 Output Total 2850 400 Balance -1350 150 Physical Exam - Physical Exam General Appearance: alert, no apparent distress Respiratory: lungs clear Cardiac/Chest: regular rate, rhythm Abdomen: non-tender, soft Extremities: other (No hematoma or echymosis. 2+ DP and PT pulses), No pedal edema Neuro/Psych: alert ICD10 Worksheet Patient Problems: Problems Problem Status Onset Cardiac arrest Acute Osteoarthritis of left hip Acute
[2017-06-08] MEDS: HYDROCODONE/APAP 10/325 TAB PO PRN ×3 (09:03→23:17)
[2017-06-08] MEDS: TICAGRELOR 90 MG TAB PO SCH ×2 (09:04→20:37)
[2017-06-08] MEDS: ATORVASTATIN CALCIUM 40 MG TAB PO SCH (09:04)
[2017-06-08] MEDS: ASPIRIN EC 81 MG TAB PO SCH (09:04)
[2017-06-08] MEDS: CARVEDILOL 3.125 MG TAB PO SCH ×2 (09:06→17:49)
--- NOTE | 2017-06-08 11:44 | PDCARPN ---
Cardiology Progress Note Chief Complaint: No cardiovascular complaints today Assessment/Plan: Assessment: Patient is a 56 y/o male with known history of CAD s/p PCI (RCA, 2005), HTN, and HLP, who presented to [facility] via EMS after cardiac arrest in the field. Polymorphic VT with defib was delivered in the field. PCI to small OM by Dr. Nguyễn Martinez on . Ongoing ventricular ectopy on telemetry (not protracted , nor >triples). Overall, patient doing very well. No cardiovascular complaints today. Long discussion about the VT and possible need for arrhythmic protection. Dr. Nguyễn Martinez did speak with EP about the case. Plan: (1) continue therapy on ASA and Brilinta for newly paced stent to the OM (2) coreg to continue with likely addition of ACEi given this most recent event (3) Statins to continue with annual assessment of cholesterol and LFTs (4) Given the PVCs and the VT event, I would like to further discuss this patient's options for arrhythmic protection - ? ICD placement versus LifeVest - would like to speak to EP myself and present patient at case conference Subjective: No cardiovascular complaints Reviewed/Discussed With: family, multidisciplinary team Objective: Vital Signs (8 Hrs) Temp Pulse Resp BP Pulse Ox 06/08/17 08:00 36.8 C 75 18 129/83 H 95 06/08/17 04:00 36.6 C 53 L 16 123/79 H 93 Intake/Output (24 Hrs) 06/07/17 06/08/17 06/09/17 05:59 05:59 05:59 Intake Total 1500 1050 Output Total 2850 1100 Balance -1350 -50 Intake: Oral (ml) 1320 1050 IV Intake (ml) 180 Output: Urine (ml) 2850 1100 Urinal 2850 1100 Other: Weight 78.471 kg 79.7 kg Intake Quantity Yes Sufficient Number of Voids Urinal 1 Result Diagrams: 06/07/17 05:10 06/07/17 12:48 Cardiac Labs: Cardiac Lab Results (72 Hrs) 06/07/17 06/07/17 12:48 05:10 CK-MB (CK-2) Fraction 31.40 H 49.00 H Troponin I 11.100 H 16.700 H Telemetry: normal sinus rhythm - Physical Exam Constitutional: WDWN, healthy appearing, no apparent distress Eyes: PERRL, EOMI Ears, Nose, Mouth, Throat: moist mucous membranes Cardiovascular: regular rate and rhythm, no murmurs, no rubs, no gallops, No jugular vein distention Peripheral Pulses: 2+: dorsalis-pedis (R), dorsalis-pedis (L) Respiratory: clear to auscultate bilat, no crackles, no wheezes Gastrointestinal: normoactive bowel sounds Skin: no rashes, no edema Musculoskeletal: no muscular tenderness Neurologic: AAOx3, CN II-XII grossly intact Psychiatric: cooperative, interactive, following commands ICD10 Worksheet Patient Problems: Problems Problem Status Onset Cardiac arrest Acute Osteoarthritis of left hip Acute
[2017-06-09 05:46] VITALS: TEMP 98.9
[2017-06-09] MEDS: ATORVASTATIN CALCIUM 40 MG TAB PO SCH (08:27)
[2017-06-09] MEDS: ASPIRIN EC 81 MG TAB PO SCH (08:27)
[2017-06-09] MEDS: TICAGRELOR 90 MG TAB PO SCH (08:27)
[2017-06-09 08:35] VITALS: RESP 14; O2SAT 96
--- NOTE | 2017-06-09 09:57 | PDDCSUM ---
Discharge Summary Discharge Summary: ADMISSION DATE: 06-06-17 DISCHARGE DATE: 06-09-17 PROCEDURES PERFORMED: (1) ANGIOGRAPHY WITH PCI TO SMALL OM (2) CXR (3) SERIAL CARDIAC ENZYMES DISCHARGE MEDICATIONS (A) ASA 81 MG PER DAY (B) BRILINTA 90 MG TWICE PER DAY (C) COREG 3.125 MG TWICE PER DAY (D) LIPITOR 40 MG QHS SUMMARY: Patient was an arrest in the field with CPR and defib performed for polymorphic VT. Successful resuscitation and transfer to [facility]. Dr. Nguyễn Martinez took the patient to the cardiac process laboratory specialist and note occlusion to a small OM. Stenting was placed. Left ventricular systolic ejection fraction was noted to be normal with estimation at 65%. Normal wall motion was appreciated. Post angiogram, the patient was transferred to the PCU and monitor via telemetry. Ventricular ectopy was noted moreso POD#1, but trended down over the following days. On telemetry today, some ventricular ectopy (singlets) were noted. No symptoms appreciated. No further chest pains or pressure. No PND or orthopnea. Tolerance to medications has been noted. Heart rates are noted to be suppressed (45-50 bpm) without symptoms. Cardiac rehab is pending ( discussion with team occurred on day 1). Discussion about VT that was noted and the likely etiology being from occlusion of the vessel intervened upon. PE at discharge: Vitals as per EMR GEN: awaken and alert, NAD SKIN: no ecchymosis HEENT: NCAT with PERRLA NECK: supple without JVD LUNGS: CTA bilaterally COR: RRR without m/r/g, normal S1S2 ABD: soft, NABS EXT: no c/c/e 2+ DP/DT/RAD NEURO: no focal deficits Labs reviewed with troponin trend down. We will discharge the patient to home today. Outpatient follow up this week. Cardiac rehab to start LEANDRO EP was requesting ETT within two weeks post discharge Would refrain from the level of exercise that the patient was performing in past until cardiac rehab has begun
[2017-06-09] MEDS: CARVEDILOL 3.125 MG TAB PO SCH (10:03)
[2017-06-09 10:05] VITALS: BP 128/86; PULSE 52
--- NOTE | 2017-06-09 10:56 | ASDISCHSUM ---
Discharge Information Plan Status:Home with No Needs Medically Cleared to Leave:06/09/2017 Discharge Date:06/09/2017 10:45 AM CM D/C Disposition:Home, Routine, Self-Care ADT D/C Disposition:Home, Routine, Self-Care Projected Discharge Date:06/09/2017 12:00 AM Transportation at D/C: Discharge Delay Reason: Follow-Up Date:06/09/2017 12:00 AM Discharge Slot: Final Diagnosis: Placement Information Patient Contact Information Contact Name:KEO Relationship: Address:[address] [place] [address] City:[place] Alternate Phone: [facility]/Zip Code:[place] [address] Email: Financial Information Financial Class:HMO and PPO Plans Primary Plan Desc:[employer] P[employer] Primary Plan Number:[id number] Secondary Plan Desc: Secondary Plan Number: Assessment Information Intervention Information
[2017-06-09] MEDS ORDERED: CARVEDILOL 3.125 MG TAB PO SCH (11:30)
== END 2017-06-09 10:45 | disposition home or self-care (01) | DRG 247 ==
LOC: EDUNIT# → OBSVTOIN 16:57 → F2N 17:02 → F2W 06-07 20:07
PROVIDERS: ADMIT Internal Medicine Cardiovascular Disease; ATTEND Internal Medicine Cardiovascular Disease
PROC: B2111ZZ Fluoroscopy of Multiple Coronary Arteries using Low Osmolar Contrast (ICD-10-PCS; principal; 2017-06-06)
PROC: 027034Z Dilation of Coronary Artery, One Artery with Drug-eluting Intraluminal Device, Percutaneous Approach (ICD-10-PCS; principal; 2017-06-06)
PROC: B2151ZZ Fluoroscopy of Left Heart using Low Osmolar Contrast (ICD-10-PCS; principal; 2017-06-06)
DX: I25.10 Atherosclerotic heart disease of native coronary artery without angina pectoris (principal); T82.855A Stenosis of coronary artery stent, initial encounter; I10 Essential (primary) hypertension; E78.5 Hyperlipidemia, unspecified; Z23 Encounter for immunization
CPT/HCPCS: 82947-QW; C1725; C1769; C1874; C1887; C9600; G0009; J0461; J0583; J1644; J2250; J2405; J3010; Q9967